=== PATIENT | female | born 2000 | race Hispanic/Latino ===

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

== ENCOUNTER 2022-06-15 13:43 | Emergency (ER) | payer OTHER ==
[~2022-06-15] VITALS: Ht 149.9 cm; Wt 102.0 kg
[2022-06-15] VITALS (7 sets, daily range): BP systolic 107–139; BP diastolic 65–95
[~2022-06-15 13:43] MED LIST changes: +ANTIVERT PO
== END 2022-06-15 15:24 | disposition home or self-care (01) | DRG 153 ==
LOC: ED 13:43
DX: J06.9 Acute upper respiratory infection, unspecified (principal)